=== PATIENT | male | born 1990 | race Caucasian/White ===

== ENCOUNTER 2017-05-12 09:13 | Emergency (ER) | payer OTHER ==
[2017-05-12 09:26] VITALS: BP 129/75
--- NOTE | 2017-05-12 09:57 | XRAY Report ---
EXAM: RIGHT ANKLE RADIOGRAPHY EXAM DATE: 05/12/2017 09:43 AM. CLINICAL HISTORY: Inversion injury today. Ankle pain. COMPARISON: None. TECHNIQUE: 3 views. FINDINGS: Bones: Normal mineralization. No fractures or bone lesions. Joints: Normal alignment. A tibiotalar joint effusion is present. Soft Tissues: There is soft tissue swelling around the lateral malleolus. IMPRESSION: No acute osseous abnormality. There is soft tissue swelling around the lateral malleolus. A tibiotala r joint effusion is present. [facility] Referring Provider Line: [phone] SITE ID: [id number]
--- NOTE | 2017-05-12 09:57 | XRAY Preliminary Report ---
Exam: XR ANKLE 3 VIEW RT IMPRESSION: No acute osseous abnormality. There is soft tissue swelling around the lateral malleolus. A tibiotala r joint effusion is present. [facility] SITE ID: [id number]
--- NOTE | 2017-05-12 11:38 | ED Physician Documentation ---
PD HPI LOWER EXT INJURY - Stated complaint Stated Complaint: ANKLE INJURY - Chief complaint Chief Complaint: Ext Problem - History obtained from History obtained from: Patient, Family - History of Present Illness PD HPI LOW EXT INJURY LOCATION: Right, Ankle Type of injury: Twist Where injury occurred: Other (gym) Timing - onset: Last night Timing - duration: Hours Timing - details: Abrupt onset, Still present Improved by: Rest, Ice, Immobilization Worsened by: Moving, Palpating Associated symptoms: Swelling. No: Weakness, Numbness Contributing factors: No: Anticoagulated Similar symptoms before: Diagnosis (ankle sprain) Recently seen: Not recently seen - Additional information Additional information: 26-year-old male was playing 4 the [employer] last night when he twisted his right ankle. He has a bit of swelling and tenderness to the area he is able to bear some weight on it but with pain. Review of Systems Constitutional: denies: Fever Eyes: denies: Decreased vision Ears: denies: Ear pain Nose: denies: Congestion Throat: denies: Sore throat Cardiac: denies: Chest pain / pressure Respiratory: denies: Cough GI: denies: Nausea, Vomiting : denies: Dysuria Skin: denies: Rash Musculoskeletal: reports: Extremity pain, Joint pain, Joint swelling, Pain with weight bearing. denies: Neck pain, Back pain PD PAST MEDICAL HISTORY - Past Medical History Past Medical History: No - Past Surgical History Past Surgical History: Yes General: Other - Present Medications Home Medications: Ambulatory Orders Medication Instructions Recorded Confirmed No Known Home Medications [No 05/12/17 05/12/17 Known Home Medications] - Allergies Allergies/Adverse Reactions: Allergies Allergy/AdvReac Type Severity Reaction Status Date / Time No Known Drug Allergies Allergy Verified 05/12/17 09:23 - Social History Does the pt smoke?: No Smoking Status: Never smoker Does the pt drink ETOH?: No Does the pt have substance abuse?: No - Immunizations Immunizations are current?: Yes - POLST Patient has POLST: No PD ED PE NORMAL - Vitals Vital signs reviewed: Yes (normal ) - General General: Alert and oriented X 3, No acute distress, Well developed/nourished - HEENT HEENT: Atraumatic, PERRL, EOMI - Neck Neck: Supple, no meningeal sign - Respiratory Respiratory: No respiratory distress - Derm Derm: Normal color, Warm and dry, No rash - Extremities Extremities: No deformity, Other (There is lateral swelling and tenderness and there is no tenderness over the proximal 5th. distal n/v is intact. ) - Neuro Neuro: No motor deficit, No sensory deficit Eye Opening: Spontaneous Motor: Obeys Commands Verbal: Oriented GCS Score: 15 - Psych Psych: Normal mood, Normal affect Results - Vitals Vitals: Vital Signs - 24 hr 05/12/17 09:23 Temperature 36.6 C Heart Rate 72 Respiratory 16 Rate Blood Pressure 129/75 O2 Saturation 97 Oxygen O2 Source Room air - Rads (name of study) ankle Radiology: Prelim report reviewed (Impression: No acute osseous abnormality. There is soft tissue swelling around the lateral malleolus. Tibiotalar joint effusion is present.), EMP read indepedently, See rad report Procedures - Splint (location) ankle Splint applied by: Tech Type of splint: Ankle airsplint Other: Patient tolerated well, No complications, Neurovascular intact, Good alignment PD MEDICAL DECISION MAKING - ED course Complexity details: reviewed results, re-evaluated patient, considered differential, d/w patient, d/w family ED course: 26-year-old male with a ankle sprain is placed into an ankle stirrup. Departure - Departure Disposition: 01 Home, Self Care Clinical Impression: Ankle sprain Qualifiers: Encounter type: initial encounter Involved ligament of ankle: calcaneofibular ligament Laterality: right Qualified Code(s): S93.411A - Sprain of calcaneofibular ligament of right ankle, initial encounter Condition: Stable Instructions: ED Sprain Ankle W X Ray Follow-Up: ZIYAD Bryant [Provider Group] Forms: Activity restrictions
== END 2017-05-12 12:00 | disposition home or self-care (01) ==
LOC: ED 09:13
DX: S93.411A Sprain of calcaneofibular ligament of right ankle, initial encounter (principal); X50.1XXA Overexertion from prolonged static or awkward postures, initial encounter; Y93.67 Activity, basketball; Y92.39 Other specified sports and athletic area as the place of occurrence of the external cause
CPT/HCPCS: 99283

== ENCOUNTER 2018-08-05 12:21 | Emergency (ER) | payer OTHER ==
[2018-08-05 12:36] VITALS: BP 142/77
[2018-08-05] MEDS ORDERED: CYCLOBENZAPRINE 10 MG TABLET PO STA (14:17)
[2018-08-05] MEDS ORDERED: IBUPROFEN 800 MG TABLET PO STA (14:17)
--- NOTE | 2018-08-05 14:19 | ED Physician Documentation ---
PD HPI BACK PAIN - Stated complaint Stated Complaint: BACK PX - Chief complaint Chief Complaint: Back Pain - History obtained from History obtained from: Patient - History of Present Illness Timing - onset: Today (27-year-old gentleman with mild intermittent back pain in the past with more severe low back pain today. It is across the low back and gets a little better with twisting to the left but much worse if he twists to the right. It radiates into the right buttock a little bit but denies weakness, numbness, tingling, saddle anesthesia, or fevers. There is no bowel or bladder incontinence.) Review of Systems Constitutional: reports: Reviewed and negative Cardiac: reports: Chest pain / pressure Respiratory: reports: Reviewed and negative PD PAST MEDICAL HISTORY - Past Surgical History Past Surgical History: Yes General: Other - Present Medications Home Medications: Ambulatory Orders Medication Instructions Recorded Confirmed Cyclobenzaprine [Flexeril] 10 mg PO TID PRN #20 tablet 08/05/18 Ibuprofen [Motrin] 800 mg PO Q8H PRN #30 tablet 08/05/18 - Allergies Allergies/Adverse Reactions: Allergies Allergy/AdvReac Type Severity Reaction Status Date / Time No Known Drug Allergies Allergy Verified 05/12/17 09:23 - Social History Does the pt smoke?: No Smoking Status: Never smoker Does the pt drink ETOH?: No Does the pt have substance abuse?: No - Immunizations Immunizations are current?: Yes - POLST Patient has POLST: No PD ED PE NORMAL - Vitals Vital signs reviewed: Yes - General General: Alert and oriented X 3, No acute distress - Back Back: No CVA TTP, No spinal TTP, Other (The patient has equal and normal Achilles and patellar reflexes bilaterally. Normal sensation in all areas of the legs. Patient denies saddle anesthesia. Normal strength in flexion- extension at the ankles, knees, and flexion of the hips.) - Neuro Neuro: Alert and oriented X 3, Normal speech Results - Vitals Vitals: Vital Signs - 24 hr 08/05/18 12:32 Temperature 36.6 C Heart Rate 67 Respiratory 16 Rate Blood Pressure 142/77 H O2 Saturation 99 Oxygen O2 Source Room air PD MEDICAL DECISION MAKING - ED course ED course: This patient has seemingly uncomplicated musculoskeletal back pain. The patient has no "red flags." Specifically denies IV drug use, fevers, incontinence, saddle anesthesia. Spinal epidural abscess was considered, given that the patient has no fever, is not diabetic, has no spinal tenderness, does not use IV drugs, and has no bilateral neurologic symptoms, the diagnosis of spinal epidural abscess is considered exceedingly unlikely. Departure - Departure Disposition: 01 Home, Self Care Clinical Impression: Back spasm Condition: Good Record reviewed to determine appropriate education?: Yes Instructions: ED Low Back Pain Injury Prescriptions: Cyclobenzaprine [Flexeril] 10 mg PO TID PRN #20 tablet PRN Reason: Spasms Ibuprofen [Motrin] 800 mg PO Q8H PRN #30 tablet PRN Reason: PAIN &/OR FEVER Comments: Call your doctor to arrange a follow-up appointment, make the next available appointment. In the interim, return anytime if worse or if new symptoms develop. Your blood pressure was elevated today on check into the emergency department. This does not mean that you have hypertension, it is a common phenomenon to come to the emergency department and have elevated blood pressure. I recommend that you see your primary care physician within the week to have it rechecked when you are feeling better.
== END 2018-08-05 14:27 | disposition home or self-care (01) ==
LOC: ED 12:21
DX: M62.830 Muscle spasm of back (principal); M54.5 Low back pain; R03.0 Elevated blood-pressure reading, without diagnosis of hypertension
CPT/HCPCS: 99282; 99283; A9270

== ENCOUNTER 2018-08-08 08:26 | Emergency (ER) | payer OTHER ==
[2018-08-08 08:44] VITALS: BP 143/77
[2018-08-08] MEDS ORDERED: KETOROLAC 60 MG/2 ML VIAL IM STA (09:03)
[2018-08-08] MEDS ORDERED: DEXAMETHASONE 10 MG/ML VIAL PO STA (09:03)
[2018-08-08] MEDS ORDERED: CHERRY SYRUP 10 ML UDC PO ONE (09:03)
--- NOTE | 2018-08-08 09:05 | ED Physician Documentation ---
PD HPI BACK PAIN - Stated complaint Stated Complaint: LOWER BACK PX - Chief complaint Chief Complaint: Back Pain - History obtained from History obtained from: Patient, Family - History of Present Illness Timing - onset: How many days ago (5) Timing - duration: Days (5) Timing - details: Abrupt onset, Still present Location: Lower, Right, Left Quality: Pain, Spasm, Sharp, Similar to prior episodes Associated symptoms: No: Fever, Weakness, Numbness, Incontinent of urine, Unable to urinate, Hematuria, Incontinent of stool Improves with: Rest, Position, Meds Worsened by: Movement Similar symptoms before: Diagnosis (sciatica) Recently seen: Emergency Dept - Additional information Additional information: 28-year-old male who developed some lumbar muscle spasm last week was seen in the emergency department on Wednesday prescribe ibuprofen and Flexeril and today he is having pain radiating to both upper thighs. He has had this happen to him [place] [employer] Review of Systems Constitutional: denies: Fever Eyes: denies: Decreased vision Ears: denies: Ear pain Nose: denies: Congestion Throat: denies: Sore throat Respiratory: denies: Cough GI: denies: Vomiting PD PAST MEDICAL HISTORY - Past Surgical History Past Surgical History: Yes General: Other - Present Medications Home Medications: Ambulatory Orders Medication Instructions Recorded Confirmed Cyclobenzaprine [Flexeril] 10 mg PO TID PRN #20 tablet 08/05/18 Ibuprofen [Motrin] 800 mg PO Q8H PRN #30 tablet 08/05/18 Hydrocodone/Acetaminophen 1 - 2 each PO Q6H PRN #14 tablet 08/08/18 [Hydrocodon-Acetaminophen 5-325] - Allergies Allergies/Adverse Reactions: Allergies Allergy/AdvReac Type Severity Reaction Status Date / Time No Known Drug Allergies Allergy Verified 08/08/18 08:44 - Social History Does the pt smoke?: No Smoking Status: Never smoker Does the pt drink ETOH?: No Does the pt have substance abuse?: No - Immunizations Immunizations are current?: Yes - POLST Patient has POLST: No PD ED PE NORMAL - Vitals Vital signs reviewed: Yes (hypertensive mild) - General General: Alert and oriented X 3, No acute distress, Well developed/nourished - HEENT HEENT: Atraumatic, PERRL, EOMI - Respiratory Respiratory: No respiratory distress - Back Back: No CVA TTP, No spinal TTP, Other (There is mild tenderness to the lower jax mbar spine bilaterally ) - Derm Derm: Normal color, Warm and dry, No rash - Extremities Extremities: No deformity, No edema - Neuro Neuro: Alert and oriented X 3, racing car driver 2-12 intact, No motor deficit, No sensory deficit, Normal speech Eye Opening: Spontaneous Motor: Obeys Commands Verbal: Oriented GCS Score: 15 - Psych Psych: Normal mood, Normal affect Results - Vitals Vitals: Vital Signs - 24 hr 08/08/18 08:41 Temperature 98.1 C H Heart Rate 75 Respiratory 12 Rate Blood Pressure 143/77 H O2 Saturation 99 Oxygen O2 Source Room air PD MEDICAL DECISION MAKING - ED course Complexity details: considered differential, d/w patient ED course: 28 y/o male with sciatica is administered decadron and tordal in the Ed and we will add in the pain medication. Departure - Departure Disposition: 01 Home, Self Care Clinical Impression: Sciatica Qualifiers: Laterality: bilateral Qualified Code(s): M54.31 - Sciatica, right side Condition: Stable Instructions: ED Sciatica Follow-Up: ZIYAD Bryant [Provider Group] Prescriptions: Hydrocodone/Acetaminophen [Hydrocodon-Acetaminophen 5-325] 1 - 2 each PO Q6H PRN #14 tablet PRN Reason: pain Forms: Activity restrictions
== END 2018-08-08 09:40 | disposition home or self-care (01) ==
LOC: ED 08:26
DX: M54.42 Lumbago with sciatica, left side (principal); M54.41 Lumbago with sciatica, right side
CPT/HCPCS: 96372; 99283

== ENCOUNTER 2021-03-25 23:47 | Emergency (ER) | payer BC, OTHER ==
--- NOTE | 2021-03-26 00:42 | ED Physician Documentation ---
PD HPI BACK PAIN - Stated complaint Stated Complaint: BACK PX - Chief complaint Chief Complaint: Back Pain - History obtained from History obtained from: Patient - History of Present Illness Timing - onset: Yesterday Timing - details: Abrupt onset Pain level now: 6 Location: Lower, Right, Left Quality: Pain, Spasm Associated symptoms: No: Fever, Weakness, Numbness, Incontinent of urine, Unable to urinate, Hematuria, Incontinent of stool Improves with: Rest Worsened by: Movement Contributing factors: Lifting Recently seen: Not recently seen - Additional information Additional information: c/o low back pain, left greater than right, sudden onset yesterday as he was finishing a work out at the gym involving heavy lifting. Pain is described as burning. He has had similar back pain before and has had good relief with flexeril and decadron. He used Tylenol today without adequate improvement. Review of Systems Constitutional: reports: Reviewed and negative : denies: Unable to Void, Incontinent Musculoskeletal: reports: Back pain Neurologic: denies: Generalized weakness, Focal weakness, Numbness PD PAST MEDICAL HISTORY - Past Medical History Cardiovascular: None Respiratory: None Neuro: None Endocrine/Autoimmune: None GI: None : None HEENT: None Psych: None Musculoskeletal: Chronic back pain Derm: Other drug resistant infections - Past Surgical History Past Surgical History: No General: Other - Present Medications Home Medications: Ambulatory Orders Medication Instructions Recorded Confirmed diazePAM [Valium] 5 mg PO TID PRN #10 tablet 03/26/21 - Allergies Allergies/Adverse Reactions: Allergies Allergy/AdvReac Type Severity Reaction Status Date / Time No Known Drug Allergies Allergy Verified 03/25/21 23:54 - Social History Does the pt smoke?: No Smoking Status: Never smoker Does the pt drink ETOH?: Yes Does the pt have substance abuse?: No - Immunizations Immunizations are current?: Yes - POLST Patient has POLST: No PD ED PE NORMAL - Vitals Vital signs reviewed: Yes - General General: Alert and oriented X 3, Well developed/nourished, Other (mostly NAD with episodic painful episodes lasting few seconds) - Cardiac Cardiac: RRR, No murmur - Back Back: No CVA TTP, No spinal TTP - Neuro Neuro: No motor deficit (5/5 bilateral dorsi/plantarflexion), No sensory deficit, Other (2+/4 bilateral patellar DTR) Results - Vitals Vitals: Oxygen O2 Source Room air PD MEDICAL DECISION MAKING - ED course Complexity details: reviewed old records, considered differential, d/w patient ED course: no red flags such as numbness, weakness, bowel/bladder incontinence. Mechanism is c/w lumbar strain. Has had good results with flexeril and decadron in the past. He is given decadron in ED; I recommended diazepam for muscle relaxant, as he was having brief but intense episodes of painful muscle spasm with minimal provocation during evaluation. a short course of diazepam would be more likely to be effective than flexeril for these obviously painful spasms. Departure - Departure Disposition: 01 Home, Self Care Clinical Impression: Low back strain Qualifiers: Encounter type: initial encounter Qualified Code(s): S39.012A - Strain of muscle, fascia and tendon of lower back, initial encounter Condition: Good Instructions: ED Sprain Strain Lumbar Prescriptions: diazePAM [Valium] 5 mg PO TID PRN #10 tablet PRN Reason: Pain Comments: A prescription for diazepam (Valium) has been electronically submitted to [facility] pharmacy in [place]. This is to be taken as per label instructions as needed for low back pain/spasm. It should be taken in combination with acetaminophen (tylenol) or, preferably, and anti-inflammatory medication such as Aleve or Ibuprofen. Do not drive nor work when taking diazepam. Discharge Date/Time: 03/26/21 01:11
[2021-03-26] MEDS: DEXAMETHASONE 10 MG/ML VIAL PO STA (01:05)
[2021-03-26] MEDS: diazePAM 5 MG TABLET PO STA (01:05)
[2021-03-26] MEDS: CHERRY SYRUP 10 ML UDC PO ONE (01:05)
[2021-03-26 01:08] VITALS: BP 134/91
== END 2021-03-26 01:11 | disposition home or self-care (01) ==
LOC: ED 23:47
DX: S39.012A Strain of muscle, fascia and tendon of lower back, initial encounter (principal); X58.XXXA Exposure to other specified factors, initial encounter
CPT/HCPCS: 99282; 99283; A9270

== ENCOUNTER 2022-10-26 03:17 | Outpatient (CLI) | payer OTHER, BC | END 2022-10-26 03:18 | disposition critical access hospital (66) | LOC: EMS 03:17 | DX: R20.2 Paresthesia of skin (principal) | CPT/HCPCS: A0425; A0429 ==

== ENCOUNTER 2022-10-26 03:31 | Emergency (ER) | payer OTHER, BC ==
--- NOTE | 2022-10-26 04:08 | ED Physician Documentation ---
History of Present Illness - Stated complaint Stated Complaint: POSS DRUG EXPOSURE - Chief complaint Chief Complaint: Neuro - History obtained from History obtained from: Patient - Additonal information Additional information: 32yM presents to the ED with lightheadedness, tingling in the extremities and soa when at a suspect's residence and uncovering that they were smoking "blues", fentanyl mixed with meth. patient states he felt better after walking outside and now feels back to baseline. PD PAST MEDICAL HISTORY - Past Medical History Past Medical History: No Cardiovascular: None Respiratory: None Neuro: None Endocrine/Autoimmune: None GI: None : None HEENT: None Psych: None Musculoskeletal: Chronic back pain Derm: Other drug resistant infections - Past Surgical History Past Surgical History: No General: Other - Present Medications Home Medications: Ambulatory Orders Medication Instructions Recorded Confirmed diazePAM [Valium] 5 mg PO TID PRN #10 tablet 03/26/21 - Allergies Allergies/Adverse Reactions: Allergies Allergy/AdvReac Type Severity Reaction Status Date / Time No Known Drug Allergies Allergy Verified 10/26/22 03:36 - Social History Does the pt smoke?: No Smoking Status: Never smoker Does the pt drink ETOH?: Yes Does the pt have substance abuse?: No - Immunizations Immunizations are current?: Yes - POLST Patient has POLST: No PD ED PE NORMAL - Vitals Vital signs reviewed: Yes - General General: Alert and oriented X 3, No acute distress, Well developed/nourished - HEENT HEENT: Atraumatic, PERRL, EOMI, Moist mucous membranes, Pharynx benign - Neck Neck: Supple, no meningeal sign - Cardiac Cardiac: RRR - Respiratory Respiratory: No respiratory distress, Clear bilaterally - Abdomen Abdomen: Non tender, Non distended - Derm Derm: Normal color, Warm and dry - Extremities Extremities: No deformity - Neuro Neuro: Alert and oriented X 3, 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 Denies symptoms at present and exam is benign. advised to return to work and f/u routinely with pcp. return precautions given. Departure - Departure Disposition: 01 Home, Self Care Clinical Impression: Lightheadedness, Tingling in extremities Condition: Good Instructions: ED Screening Exam Medical Nonurgent Comments: You were seen in the emergency department for medical screening. Your vital signs and physical exam were normal except for some high blood pressure. You should have this rechecked with your primary care provider. Please follow-up with your primary care provider and return to the emergency department if you have any new or worsening symptoms or other concerns.
[2022-10-26 04:28] VITALS: BP 130/83; O2SAT 95
== END 2022-10-26 04:10 | disposition home or self-care (01) ==
LOC: EDUNIT# → ED 03:31
DX: R42 Dizziness and giddiness (principal); R20.2 Paresthesia of skin
CPT/HCPCS: 1040M; 99283